=== PATIENT | male | born 1950 | race Caucasian/White ===

== ENCOUNTER 2017-08-10 10:11 | Day surgery (SDC) | payer MEDICARE ==
[~2017-08-10] VITALS: Ht 177.8 cm; Wt 79.1 kg
[2017-08-10 10:54] VITALS: BP 104/62
[2017-08-10] MEDS ORDERED: SODIUM CHLORIDE 0.9% 1,000 ML IV SCH (10:55)
[2017-08-10] MEDS ORDERED: LOVA10TA PO (10:59)
[2017-08-10] MEDS ORDERED: LISI-167 PO (10:59)
[2017-08-10] MEDS ORDERED: ALPR0.5T6 PO (10:59)
[2017-08-10] MEDS ORDERED: ASPI-496 PO (10:59)
[2017-08-10] MEDS ORDERED: PROP20TA PO (10:59)
[2017-08-10] MEDS ORDERED: FENO160T PO (10:59)
[2017-08-10] MEDS ORDERED: FLUO40CA2 PO (10:59)
[2017-08-10] MEDS ORDERED: FERR324T5 PO (10:59)
[2017-08-10] MEDS ORDERED: OXYC-302 PO (10:59)
[2017-08-10] MEDS ORDERED: NALOXONE 1 MG/ML, 2ML ONE (11:40)
[2017-08-10] MEDS ORDERED: FENTANYL PF 100 MCG/2ML ONE (11:40)
[2017-08-10] MEDS ORDERED: FLUMAZENIL 0.1 MG/1 ML, 5ML ONE (11:40)
[2017-08-10] MEDS ORDERED: MIDAZOLAM 1 MG/ML, 5ML ONE (11:40)
[2017-08-10 11:43] LABS: BLOOD UREA NITROGEN 41 mg/dL (7-18)
[2017-08-10] MEDS ORDERED: LIDOCAINE 1%, 20ML ONE (12:36)
[2017-08-10] MEDS ORDERED: DIPHENHYDRAMINE 50 MG/ML, 1ML ONE (12:52)
== END 2017-08-10 17:00 ==
LOC: OUT 10:11 → EDSTATUS 12:00 → OUT 17:00
PROVIDERS: ATTEND Radiology Neuroradiology
DX: I67.1 Cerebral aneurysm, nonruptured (principal); E78.00 Pure hypercholesterolemia, unspecified; F41.9 Anxiety disorder, unspecified; I10 Essential (primary) hypertension; Z98.890 Other specified postprocedural states
CPT/HCPCS: 36226; 36415; 76937; 80048; C1751; C1760; C1769; C1894; J1200; J2250; J3010; J3490; J7030; J2310